=== PATIENT | female | born 1980 | race Caucasian/White ===

== ENCOUNTER → 2024-05-03 16:26 | Outpatient (REF) | payer OTHER, SELFPAY | LOC: RAD 16:26 | PROVIDERS: ATTENDING PHYSICIAN Family Medicine | DX: R05.3 Chronic cough (principal) | CPT/HCPCS: 71046 ==

== ENCOUNTER → 2024-08-24 11:21 | Outpatient (REF) | payer OTHER, SELFPAY | LOC: RAD 11:21 | PROVIDERS: ATTENDING PHYSICIAN Family Medicine | DX: M79.642 Pain in left hand (principal) | CPT/HCPCS: 73130 ==